=== PATIENT | male | born 1970 | race Two or more races ===

== ENCOUNTER 2019-02-18 21:33 | Emergency (ER) | payer OTHER ==
[~2019-02-18] VITALS: Ht 175.3 cm; Wt 84.3 kg
[2019-02-18] MEDS ORDERED: MORPHINE SULFATE 4 MG/ML, 1ML IVPush PRN (22:00)
[2019-02-18] MEDS ORDERED: ONDANSETRON 2MG/ML, 2ML IVPush ONE (22:00)
[2019-02-18] MEDS ORDERED: SODIUM CHLORIDE FLUSH 10ML SYR IVF ONE (22:00)
[2019-02-18 22:13] LABS: BASOPHILS # (AUTO) 0.08 x10^3/uL (0-0.1); BASOPHILS % (AUTO) 1 % (0-1); EOSINOPHILS # (AUTO) 0.22 x10^3/uL (0-0.4); EOSINOPHILS % (AUTO) 2 % (1-7); LYMPHOCYTES # (AUTO) 3.96 x10^3/uL (1-3.4); LYMPHOCYTES % (AUTO) 43 % (22-44); MD NO; MEAN CORPUSCULAR HEMOGLOBIN 29.9 pg (27.5-34.5); MEAN CORPUSCULAR HGB CONC 32.9 g/dL (33.2-36.2); MEAN CORPUSCULAR VOLUME 91.1 fL (81-97); MEAN PLATELET VOLUME 7.8 fL (7.4-10.4); MONOCYTES # (AUTO) 0.94 x10^3/uL (0.2-0.8); MONOCYTES % (AUTO) 10 % (2-9); NEUTROPHILS # (AUTO) 4.05 x10^3/uL (1.8-6.8); NEUTROPHILS % (AUTO) 44 % (42-75); PLATELET COUNT 294 x10^3/uL (130-400); RED BLOOD COUNT 5.45 x10^6/uL (4.38-5.82); RED CELL DISTRIBUTION WIDTH 12.7 % (9.4-14.8)
--- NOTE | 2019-02-18 22:15 | NUR ---
PT AND FAMILY MEMBER FREQUENTLY COMING TO TRIAGE DOOR REQUESTING PAIN MEDICATION TO BE GIVEN. THIS RN INFORMED PT AND FAMILY OF POC, THAT PAIN MEDICATION MAY NOT BE ADMINISTERED IN THE LOBBY AND THAT SOON WE GET AN AVAILABLE ROOM THAT PT WILL BE MEDICATED FOR HIS PAIN. THIS RN UPDATED SUP AND PA THAT PT FREQUENTY REQUESTING PAIN MEDICATION.
[2019-02-18 22:23] LABS: ANION GAP 7 mmol/L (5-15); CALCIUM 9.3 mg/dL (8.5-10.1); CHLORIDE 110 mmol/L (98-107)
[2019-02-18 22:24] LABS: ALANINE AMINOTRANSFERASE 64 U/L (12-78); ALBUMIN 3.6 g/dL (3.4-5.0)
[2019-02-18 22:26] LABS: ALKALINE PHOSPHATASE 59 U/L (45-117); BILIRUBIN,TOTAL 0.4 mg/dL (0.2-1.0); TOTAL PROTEIN 7.1 g/dL (6.4-8.2)
--- NOTE | 2019-02-18 22:55 | NUR ---
PT ATTEMPTED TO COME INTO TRIAGE ROOM OTHER PT WAS CALLED INTO TRIAGE. 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 REMINDED PT THAT I CANNOT GIVE PAIN MEDICATIONS TO HIM IN THE LOBBY, THAT HE WILL BE UP NEXT FOR A ROOM. PT'S FAMILY MEMBER THAN ASKED FOR SUP NAME AND ASKED AGAIN HOW MUCH LONGER. APPOLOGIZED FOR WAIT AND ATTEMPTED TO REASSURE PT AND FAMILY THAT WE WILL GET HIM TO A ROOM AND MEDICATED SOON POSSIBLE. UPDATED SUP REGARDING PT AND FAMILY STATUS AND REQUEST.
[2019-02-18] MEDS ORDERED: MORPHINE SULFATE 4 MG/ML, 1ML ONE (23:04)
[2019-02-18] MEDS ORDERED: ONDANSETRON 2MG/ML, 2ML ONE (23:04)
--- NOTE | 2019-02-18 23:39 | NUR ---
PT'S SPOUSE REQUESTING PAIN MEDICINE OTHER THAN MORPHINE. PHYSICIAN NOTIFIED. ORDERS PLACED.
[2019-02-18 23:43] LABS: TROPONIN I < 0.015 ng/mL (0.000-0.045)
[2019-02-18] MEDS ORDERED: HYDROmorphone 1 MG/ML, 1ML INJ ONE (23:45)
[2019-02-18] MEDS: HYDROmorphone 1 MG/ML, 1ML INJ IVPush PRN (23:49)
--- NOTE | 2019-02-19 00:09 | NUR ---
PT RESTING WITH EYES CLOSED. FAMILY AT BEDSIDE. NO NEEDS AT THIS TIME.
[2019-02-19] MEDS ORDERED: HYDROmorphone 1 MG/ML, 1ML INJ ONE (00:39)
[2019-02-19] MEDS: HYDROmorphone 1 MG/ML, 1ML INJ IVPush PRN (00:42)
[2019-02-19 01:48] VITALS: BP 124/84
== END 2019-02-19 01:50 | disposition home or self-care (01) ==
LOC: ED 23:37
DX: K80.50 Calculus of bile duct without cholangitis or cholecystitis without obstruction (principal); R10.11 Right upper quadrant pain; R10.13 Epigastric pain; E11.9 Type 2 diabetes mellitus without complications; F17.200 Nicotine dependence, unspecified, uncomplicated
CPT/HCPCS: 36415; 76700; 80053; 82962; 83690; 84484; 85025; 93005; 96374; 96375; 96376; 99284; J1170; J2270; J2405

== ENCOUNTER 2019-03-09 09:45 | Day surgery (SDC) | payer OTHER ==
[~2019-03-09] VITALS: Ht 175.3 cm; Wt 81.8 kg
[2019-03-09] MEDS ORDERED: METF500T17 PO (10:31)
[2019-03-09] MEDS ORDERED: LACTATED RINGERS 1,000 ML IV SCH ×2 (10:31→11:02)
[2019-03-09] MEDS ORDERED: ASPI-496 PO (10:31)
[2019-03-09 10:42] VITALS: BP 151/105
[2019-03-09] MEDS ORDERED: ACETAMINOPHEN 500 MG TABLET PO ONE ×2 (11:00→11:30)
[2019-03-09] MEDS ORDERED: GABAPENTIN 300 MG CAPSULE PO ONE ×2 (11:00→11:30)
[2019-03-09] MEDS ORDERED: MIDAZOLAM 1 MG/ML, 2ML ONE (11:12)
[2019-03-09] MEDS ORDERED: FENTANYL PF 250 MCG/5ML ONE (11:12)
[2019-03-09] MEDS ORDERED: CEFAZOLIN 1,000 MG ONE (11:15)
[2019-03-09] MEDS ORDERED: GLYCOPYRROLATE 0.2MG/1ML, 5ML ONE (11:15)
[2019-03-09] MEDS ORDERED: PROPOFOL 10 MG/ML, 20ML ONE (11:15)
[2019-03-09] MEDS ORDERED: NEOSTIGMINE 1 MG/ML, 10ML ONE (11:15)
[2019-03-09] MEDS ORDERED: ROCURONIUM 10MG/ML,5ML ONE (11:15)
[2019-03-09] MEDS ORDERED: CEFOTETAN PMX 2GM/50ML 50 ML ONE (11:16)
[2019-03-09] MEDS ORDERED: EPINEPHRINE 1 MG/ML, 1ML ONE (12:04)
[2019-03-09] MEDS ORDERED: BUPIVACAINE/PF 0.5% ONE (12:04)
[2019-03-09] MEDS ORDERED: LABETALOL 5MG/ML, 20ML IV PRN (12:30)
[2019-03-09] MEDS ORDERED: MORPHINE SULFATE 4 MG/ML, 1ML IVPush PRN (12:30)
[2019-03-09] MEDS ORDERED: MEPERIDINE/PF 25MG/ML,1ML IVPush PRN (12:30)
[2019-03-09] MEDS ORDERED: ONDANSETRON 2MG/ML, 2ML IV PRN (12:30)
[2019-03-09] MEDS ORDERED: hydrALAzine 20 MG/ML, 1ML IV PRN (12:30)
[2019-03-09] MEDS ORDERED: BUPIVACAINE/PF-EPI 0.5% 1:200K INFIL ONE (12:55)
[2019-03-09] MEDS ORDERED: KETOROLAC 30 MG/1 ML ONE (13:01)
[2019-03-09] MEDS ORDERED: MEPERIDINE/PF 25MG/ML,1ML ONE (13:42)
[2019-03-09] MEDS ORDERED: FENTANYL PF 100 MCG/2ML ONE (14:14)
[2019-03-09] MEDS ORDERED: OXYcodone 5 MG/5 ML ORAL.SOL UDC ONE (14:14)
[2019-03-09] MEDS: FENTANYL PF 100 MCG/2ML IV PRN ×4 (14:16→14:46)
[2019-03-09] MEDS: OXYcodone 5 MG/5 ML ORAL.SOL UDC PO PRN ×2 (14:17→15:42)
[2019-03-09] MEDS ORDERED: HYDROmorphone 1 MG/ML, 1ML INJ ONE (14:53)
[2019-03-09] MEDS: HYDROmorphone 2 MG/ML, 1ML IVPush PRN ×2 (14:54→15:01)
[2019-03-09] MEDS ORDERED: HYDROcodone/APAP 5/325 TABLET PO PRN (17:45)
[2019-03-09] MEDS ORDERED: HYDROcodone/APAP 5/325 TABLET ONE (17:45)
== END 2019-03-09 18:20 | disposition home or self-care (01) ==
LOC: OUT 09:45
PROVIDERS: ATTEND Surgery Vascular Surgery
DX: K80.12 Calculus of gallbladder with acute and chronic cholecystitis without obstruction (principal); E11.9 Type 2 diabetes mellitus without complications; I10 Essential (primary) hypertension; Z79.82 Long term (current) use of aspirin; Z79.84 Long term (current) use of oral hypoglycemic drugs; Z87.891 Personal history of nicotine dependence; Z83.3 Family history of diabetes mellitus
CPT/HCPCS: 47562; 82962; 88304; J0171; J0690; J1170; J1885; J2175; J2250; J2704; J2710; J3010; J3490; J7120